=== PATIENT | male | born 1980 | race Caucasian/White ===

== ENCOUNTER 2017-01-21 15:27 | Inpatient (IN) ==
--- NOTE | 2017-01-21 16:32 | Emergency Department Note ---
Disposition Clinical Impression: Elevated troponin Disposition: Admitted As Inpatient Condition: Good Referrals: Manjinder Lora DO [Primary Care Provider] - Forms: ED Satisfaction Letter Chest Pain HPI - General Chief Complaint: ED Chest Pain Stated Complaint: Chest Pain Time Seen by Provider: 01/21/17 15:33 Source: patient Limitations: no limitations Vital Signs Reviewed: Yes Nursing Notes Reviewed: Yes - History of Present Illness HPI Narrative: Patient presents for complaint of chest pain chest tightness that started yesterday. Patient denies any aggravating alleviating factors. Patient states the pain is minimal his chest does not radiate. Patient denies bowel bladder dysfunction associated with this. Patient denies fevers or chills denies sick contacts. Patient does note the he is a significant family history of cardiac etiology. Patient denies shortness of breath, denies any recent travel. Severity scale (1-10): 3 - Related Data Home Medications Medication Instructions Recorded Confirmed Cetirizine HCl [Zyrtec] 10 mg PO DAILY 11/08/16 11/08/16 Previous Rx's Medication Instructions Recorded Albuterol Sulfate [Albuterol 1 puff IH QID PRN #1 puff 01/20/17 Inhaler] Allergies Allergy/AdvReac Type Severity Reaction Status Date / Time No Known Allergies Allergy Verified 01/20/17 13:44 All systems ED: reviewed and negative except as stated. Chest Pain PMH - Past Medical History Medical history: Reports: asthma - Social History Smoking Status: Never smoker Alcohol use: Reports: none Drug use: Reports: none Physical Exam - General Limitations: no limitations General appearance: alert - Head Head exam: atraumatic, normocephalic, normal inspection - Eye Eye exam: Present: normal appearance, PERRL, EOMI - ENT ENT exam: normal exam, normal oropharynx, mucous membranes moist - Neck Neck exam: Present: normal inspection, full ROM, trachea midline - Chest Chest inspection: Present: normal inspection, symmetric chest wall rise - Respiratory Respiratory exam: Present: normal lung sounds bilaterally - Cardiovascular Cardiovascular exam: Present: normal rhythm, tachycardia, normal heart sounds - Abdominal Exam Abdominal exam: Present: soft, Non-Tender. Absent: tenderness, distention, guarding, rebound, rigidity - Extremities Exam Extremities exam: Present: normal inspection, full ROM. Absent: tenderness, pedal edema - Back Exam Back exam: Present: normal inspection, full ROM. Absent: tenderness - Neurological Exam Neurological exam: Present: alert, oriented X3 - Psychiatric Psychiatric exam: Present: normal affect, normal mood - Skin Skin exam: Present: warm, dry, intact, normal color Course Vital Signs Temperature 98.1 F 01/21/17 15:27 Pulse Rate 109 01/21/17 15:27 Respiratory Rate 18 01/21/17 15:27 Blood Pressure 139/83 01/21/17 15:27 O2 Sat by Pulse Oximetry 96 01/21/17 15:27 Temperature 98.1 F 01/21/17 15:27 Pulse Rate 92 01/21/17 18:00 Respiratory Rate 16 01/21/17 18:00 Blood Pressure 136/85 01/21/17 18:00 O2 Sat by Pulse Oximetry 98 01/21/17 18:00 Oxygen Delivery Oxygen Delivery Room Air Chest Pain - Differential Diagnosis Likely: pneumothorax, unstable angina pectoris, atypical chest pain, st elevation myocardial infraction, chest pain - Lab Data Lab results reviewed: Yes I reviewed the patient's lab results. Result diagrams: 01/21/17 16:17 01/21/17 16:17 Lab Results 01/21/17 01/21/17 01/21/17 Range/Units 15:52 16:17 16:17 WBC 7.5 (4.3-11.1) K/mcL RBC 4.65 (4.19-5.50) M/mcL Hgb 14.0 (12.9-16.9) g/dL Hct 41.9 (37.5-50.1) % MCV 90.1 (83.0-100.0) fL MCH 30.1 (28.0-33.3) pg MCHC 33.4 (31.6-35.5) g/dL RDW 13.1 (11.5-14.5) % Plt Count 273 (140-400) K/mcL MPV 9.7 (9.4-12.4) fL Immature Gran % 0.1 (0-4) % Seg Neutrophils % 51.2 % Lymphocytes % 33.6 % Monocytes % 11.5 % Eosinophils % 3.1 % Basophils % 0.5 % Neutrophils # 3.8 (1.6-8.9) K/mcL Lymphocytes # 2.5 (0.6-4.6) K/mcL Monocytes # 0.9 (0.0-1.3) K/mcL Eosinophils # 0.2 (0.0-0.6) K/mcL Basophils # 0.0 (0.0-0.2) K/mcL D-Dimer (0-500) ng/mLFEU Sodium 141 (136-145) mEq/L Potassium 3.6 (3.5-4.5) mEq/L Chloride 106 (98-109) mEq/L Carbon Dioxide 23 (19-29) mEq/L BUN 12 (8-26) mg/dL Creatinine 0.83 (0.72-1.25) mg/dL Est GFR ( Amer) > 60 (> 60) Est GFR (Non-Af Amer) > 60 (> 60) BUN/Creatinine Ratio 14 (6-26) Glucose 112 H (70-99) mg/dL Calculated Osmolality 293 (280-300) Calcium 8.8 (8.6-10.8) mg/dL Total Bilirubin 0.4 (0.2-1.2) mg/dL AST 31 (5-34) Units/L ALT 49 (0-55) Units/L Alkaline Phosphatase 38 (38-126) Units/L Troponin I (0-0.03) ng/mL B-Natriuretic Peptide (0-100) pg/mL Serum Total Protein 7.5 (6.0-8.3) g/dL Albumin 3.3 L (3.5-5.0) g/dL Globulin 4.2 H (2.4-3.5) g/dL Albumin/Globulin Ratio 0.8 L (1.1-2.2) Urine Opiates Screen Negative (E[place]by=831) ng/mL Ur Barbiturates Screen Negative (Bdbyss=917) ng/mL Ur Phencyclidine Scrn Negative (Cutoff=25) ng/mL Ur Amphetamines Screen Negative (Kmmljz=1281) ng/mL U Benzodiazepines Scrn Negative (Uxliul=784) ng/mL Urine Cocaine Screen Negative (Cutoff= 300) ng/mL U Marijuana (THC) Screen Negative (Cutoff = 50) ng/mL 01/21/17 01/21/17 01/21/17 Range/Units 16:17 16:17 16:17 WBC (4.3-11.1) K/mcL RBC (4.19-5.50) M/mcL Hgb (12.9-16.9) g/dL Hct (37.5-50.1) % MCV (83.0-100.0) fL MCH (28.0-33.3) pg MCHC (31.6-35.5) g/dL RDW (11.5-14.5) % Plt Count (140-400) K/mcL MPV (9.4-12.4) fL Immature Gran % (0-4) % Seg Neutrophils % % Lymphocytes % % Monocytes % % Eosinophils % % Basophils % % Neutrophils # (1.6-8.9) K/mcL Lymphocytes # (0.6-4.6) K/mcL Monocytes # (0.0-1.3) K/mcL Eosinophils # (0.0-0.6) K/mcL Basophils # (0.0-0.2) K/mcL D-Dimer 632 H (0-500) ng/mLFEU Sodium (136-145) mEq/L Potassium (3.5-4.5) mEq/L Chloride (98-109) mEq/L Carbon Dioxide (19-29) mEq/L BUN (8-26) mg/dL Creatinine (0.72-1.25) mg/dL Est GFR ( Amer) (> 60) Est GFR (Non-Af Amer) (> 60) BUN/Creatinine Ratio (6-26) Glucose (70-99) mg/dL Calculated Osmolality (280-300) Calcium (8.6-10.8) mg/dL Total Bilirubin (0.2-1.2) mg/dL AST (5-34) Units/L ALT (0-55) Units/L Alkaline Phosphatase (38-126) Units/L Troponin I 1.14 H* (0-0.03) ng/mL B-Natriuretic Peptide 16 (0-100) pg/mL Serum Total Protein (6.0-8.3) g/dL Albumin (3.5-5.0) g/dL Globulin (2.4-3.5) g/dL Albumin/Globulin Ratio (1.1-2.2) Urine Opiates Screen (Nckwhx=029) ng/mL Ur Barbiturates Screen (Qctsut=612) ng/mL Ur Phencyclidine Scrn (Cutoff=25) ng/mL Ur Amphetamines Screen (Fwradw=9093) ng/mL U Benzodiazepines Scrn (Wrmctq=894) ng/mL Urine Cocaine Screen (Cutoff= 300) ng/mL U Marijuana (THC) Screen (Cutoff = 50) ng/mL - Radiology Data Radiology results reviewed: Yes I reviewed the patient's radiology results. Chest X-Ray 01/21/17 15:50 IMPRESSION: No acute cardiopulmonary abnormality detected. D/ / Serg Pruett MD / Serg Pruett MD Interpreting Provider: Serg Pruett MD Chest CTA 01/21/17 17:17 IMPRESSION: 1. No findings of pulmonary embolism. 2. Minimal bronchial wall thickening bilaterally and questionable patchy bronchial secretions in the lower lobes, potentially related to bronchitis. 3. Patchy mosaic attenuation in both lungs with basilar sparing, potentially related to small airways or small vessels disease. D/ / Po Dwyer MD / Po Dwyer MD Interpreting Provider: Po Dwyer MD - EKG Data EKG attestation: Yes I reviewed and interpreted this EKG. EKG shows normal: sinus rhythm Rate: tachycardia Rhythm: NSR Critical Care Time Total Critical Care Time: 30 Attestation: Critical care performed: Time is exclusive of separately billable procedures. Time includes: direct patient care, patient reassessment, coordination of patient care, interpretation of data (laboratory data, radiology data, and respiratory data), review of patient's medical records, medical consultation and documentation of patient care. Procedures included in critical care time: Procedures excluded from critical care time:
[2017-01-21 16:59] LABS: Basophils % 0.5 %; Eosinophils # 0.2 K/mcL (0.0-0.6); Eosinophils % 3.1 %; Hematocrit 41.9 % (37.5-50.1); Immature Granulocytes % 0.1 % (0-4); Lymphocytes # 2.5 K/mcL (0.6-4.6); Lymphocytes % 33.6 %; Mean Corpuscular HGB Conc 33.4 g/dL (31.6-35.5); Mean Corpuscular Hemoglobin 30.1 pg (28.0-33.3); Mean Corpuscular Volume 90.1 fL (83.0-100.0); Mean Platelet Volume 9.7 fL (9.4-12.4); Monocytes # 0.9 K/mcL (0.0-1.3); Monocytes % 11.5 %; Neutrophils # 3.8 K/mcL (1.6-8.9); Platelet Count 273 K/mcL (140-400); Red Blood Count 4.65 M/mcL (4.19-5.50); Red Cell Distribution Width 13.1 % (11.5-14.5); Segmented Neutrophils % 51.2 %
[2017-01-21 17:12] LABS: Alanine Aminotransferase 49 Units/L (0-55); Albumin 3.3 g/dL (3.5-5.0); Albumin/Globulin Ratio 0.8 (1.1-2.2); Alkaline Phosphatase 38 Units/L (38-126); Aspartate Amino Transferase 31 Units/L (5-34); BUN/Creatinine Ratio 14 (6-26); Bilirubin,Total 0.4 mg/dL (0.2-1.2); Blood Urea Nitrogen 12 mg/dL (8-26); Calcium 8.8 mg/dL (8.6-10.8); Carbon Dioxide 23 mEq/L (19-29); Chloride 106 mEq/L (98-109); Globulin 4.2 g/dL (2.4-3.5); Glucose 112 mg/dL (70-99); Osmolality,Calculated 293 (280-300); Potassium 3.6 mEq/L (3.5-4.5); Sodium 141 mEq/L (136-145); Total Protein 7.5 g/dL (6.0-8.3); eGFR For African Americans > 60 (> 60); eGFR For Non-African Americans > 60 (> 60)
[2017-01-21] MEDS ORDERED: Aspirin 81 MG TAB.CHEW PO ONE (17:26)
[2017-01-21] MEDS ORDERED: Nitroglycerin 0.4 MG TAB.SUBL SL PRN (17:30)
[2017-01-21 17:41] LABS: Amphetamine Screen,Urine Negative ng/mL (Cutoff=1000); Barbiturate Screen,Urine Negative ng/mL (Cutoff=200); Benzodiazepines Screen,Urine Negative ng/mL (Cutoff=200); Cannabinoid Screen,Urine Negative ng/mL (Cutoff = 50); Cocaine Screen,Urine Negative ng/mL (Cutoff= 300); Opiate Screen,Urine Negative ng/mL (Cutoff=300); Phencyclidine Screen,Urine Negative ng/mL (Cutoff=25)
[2017-01-21] MEDS ORDERED: Acetaminophen 325 MG TABLET PO PRN (19:56)
[2017-01-21] MEDS ORDERED: Naloxone 0.4 MG/ML INJ IVP PRN (19:56)
--- NOTE | 2017-01-21 20:02 | Internal Med History&Physical ---
Date of Encounter: 01/21/17 Time of Encounter: 20:02 Assessment and Plan (1) Chest pain Current visit: Yes Status: Acute atypical chest pain with elevated troponins R/O IA: trend troponins, echocardiogram, stress test possible pericarditis: chest pain is mild, but positional; EKG findings not suggestive of pericarditis; CRP ordered;[place]ie B virus antibodies lab ordered; ibuprofen 600 TID x 1-2 wks; colchicine 0.6 g BID x 3months Qualifiers: Chest pain type: unspecified Qualified Code(s): R07.9 - Chest pain, unspecified (2) Elevated troponin Current visit: Yes Status: Acute (3) DVT prophylaxis Current visit: Yes Status: Acute SQ lovenox Internal Medicine - H&P: HPI Chief complaint: CP Admitted From: Emergency Dept Plans for Post Hospital Care: Home History of present illness: Mr. Mcallister is a 36 year old male who presents to the ER with chest pain. He had gastroenteritis earlier this week with N/V/D. After being sick for 2 days, he had chest tightness. The chest pain has not gotten any better and there is a strong family history of CHF along with his father having multiple IA (unknown age of first IA), so he came to the ER. The chest pain is located substernally, is a tightness or pressure, does not radiate, and is made worse by taking a deep breath or lying flat. Associated symtpoms included thoracic back pain and neck pain that is an ache that started with the GI symptoms. He states that last year he had lab work done and he had HLD. He states that he gets this blood work done every 2-3 yrs. He does not take any medication for this. Past Med Surg Social Fam HX - Past Medical History Medical history: asthma (seasonal), hyperlipidemia, other (hx of rheumatic fever , [id number] carrier) Psychiatric history: no psych history - Past Surgical History Surgical History: no surgical history - Social History Smoking Status: Never smoker (heavy second hand smoke exposure growing up) Smokeless Tobacco Status: No Alcohol use: none Drug use: none - Family History Mother Age at : 51 Hx Family Cardiac Disorders: Yes (CHF) Hx Family Endocrine Disorder: Yes (DM) Father Age: 54 Hx Family Cardiac Disorders: Yes (multiple IA, HTN, HLD) Hx Family Cancer: Yes (skin) Internal Medicine - H&P: Meds Cetirizine HCl [Zyrtec] 10 mg PO DAILY PRN 11/08/16 [History] Albuterol Sulfate [Albuterol Inhaler] 1 puff IH QID PRN #1 puff 01/20/17 [Rx] Allergies No Known Allergies Allergy (Verified 01/20/17 13:44) All Systems PM: A 10-system review of systems was performed and is negative for pertinent findings except as documented above in the HPI. - Constitutional Constitutional: no chills, no fatigue, no fever(s), no malaise, no night sweats - EENT Eyes: no blurry vision, no change in vision, no discharge, no pain, no photophobia Ears: no ear discharge, no ear pain, no tinnitus Nose, mouth and throat: no dysphagia, no nasal discharge, no neck pain, no sore throat - Cardiovascular Cardiovascular ROS IM: chest pain, no diaphoresis, no dyspnea, no lightheadedness, no palpitations, no syncope - Respiratory Respiratory: no cough, no dyspnea, no wheezing, no excessive phlegm production - Gastrointestinal Gastrointestinal: diarrhea, nausea, vomiting, no abdominal pain, no hematemesis , no hematochezia, no melena - Genitourinary Genitourinary ROS male: no difficulty urinating, no dysuria, no urinary frequency, no urinary hesitancy, no urinary urgency - Musculoskeletal Musculoskeletal ROS IM: arthralgias, back pain, myalgias (upper back and neck), neck pain, no numbness, no tingling - Integumentary Integumentary IM: no rash, no unusual bruising - Neurological Neurological ROS: no confusion, no convulsions, no focal weakness, no numbness, no tingling, no tremor(s) - Hematologic/Lymphatic Hematologic/Lymphatic: no easy bruising - Constitutional Vitals: Temp Pulse Resp BP Pulse Ox 98.1 F 91 16 129/93 97 01/21/17 15:27 01/21/17 18:30 01/21/17 19:27 01/21/17 19:27 01/21/17 18:30 General appearance: Present: A&O X 3, pleasant, no acute distress, answers questions appropriately - Head Head exam: Present: atraumatic, normocephalic - Eye Eye exam: Present: PERRL, conjuntiva pink, sclera anicteric Pupils: Present: PERRL - Neck Neck exam general surgery: Present: supple, trachea midline. Absent: lymphadenopathy - Respiratory Respiratory exam: Present: CTAB. Absent: accessory muscle use, rales, rhonchi, wheezes - Cardiovascular Cardiovascular exam: Present: RRR, +S1, +S2. Absent: diastolic murmur, gallop, rubs, systolic murmur - GI/Abdominal GI/Abdominal exam: Present: normal bowel sounds, soft, no peritoneal signs. Absent: distended, tenderness - Extremities Exam Extremities exam: Present: warm, radial pulses palpable and symetrical. Absent : calf tenderness, cyanotic, pedal edema - Neurological Exam Neurological exam: Present: CN II-XII intact, oriented X3, no focal deficits. Absent: pronater drift, facial droop, speech deficit - Skin Skin exam: Present: dry, intact Internal Med - H&P Results - Labs CBC & Chem 7: 01/21/17 16:17 01/21/17 16:17
[2017-01-21] MEDS ORDERED: Loratadine 10 MG TABLET PO PRN (22:00)
[2017-01-21] MEDS ORDERED: *HR* Heparin 5,000 UNIT/ML VIAL SQ SCH (22:00)
[2017-01-21] MEDS: Colchicine 0.6 MG TABLET PO SCH (22:39)
[2017-01-21] MEDS: Ibuprofen 600 MG TABLET PO SCH (22:40)
[2017-01-22] MEDS ORDERED: *HR* Enoxaparin 100 MG/ML SYRINGE SQ SCH (06:00)
--- NOTE | 2017-01-22 09:31 | Cardiology Consult Note ---
Date of Encounter: 01/22/17 Time of Encounter: 09:00 Assessment and Plan (1) Elevated troponin Current Visit: Yes Status: Acute Troponin elevated at 1.14, 1.00, .38. Likely myopericarditis secondary to enterovirus. Describes pleuritic type chest pain. EKG shows no acute changes. Cardiac risk factors include HLD and family history. Check TTE. Agree with NSAID and Colchicine at this time. (2) Chest pain Current Visit: Yes Status: Acute Likely myopericarditis. Stress test cancelled. See plan above. Qualifiers: Chest pain type: unspecified Qualified Code(s): R07.9 - Chest pain, unspecified Discussion w patient/family: The assessment and plan as outlined above was discussed with the patient and/or family members who expressed understanding and agreement. All questions were answered. Thank you for involving us in the care of your patient. Please call with any questions. History of Present Illness Consult date: 01/22/17 Requesting physician: Cesar Moore Consult reason: Chest pain, elevated troponin Chief complaint: Chest pain History of present illness: Mr. Mcallister is a 36 year old male with a history of HLD, asthma, and rheumatic fever, and possible sleep apnea wearing c-pap who presented with chest tightness. He c/o nausea, vomiting, diarrhea all day Sunday and Sunday night. Sunday morning he developed mid-sternal chest burning. He went to urgent care and ask for an inhaler for his asthma. He decided to come to the ER last night d /t continued chest discomfort and his family history of heart disease. His grandmother has CHF and VA. He was told his mother had a history of VA. She at the age of 51 d/t unknown causes. His discomfort is described as a burning that increases with deep breaths and lying flat. He voices relief of his pain this morning. He was started on ibuprofen and colchicine for possible pericarditis. Past Med Surg Social Fam HX - Past Medical History Medical history: asthma, hyperlipidemia, other Psychiatric history: no psych history - Past Surgical History Surgical History: vasectomy - Social History Smoking Status: Never smoker Smokeless Tobacco Status: No Alcohol use: none Drug use: none - Family History Mother Living Status: Age at : 51 Cause of : Unknown Hx Family Cardiac Disorders: Yes (CHF, Renal failure) Hx Family Endocrine Disorder: Yes (DM) Father Age: 54 Living Status: Still Living Hx Family Cardiac Disorders: Yes (multiple VA, HTN, HLD) Hx Family Cancer: Yes (Melanoma) Medications and Allergies Cetirizine HCl [Zyrtec] 10 mg PO DAILY PRN 11/08/16 [History] Albuterol Sulfate [Albuterol Inhaler] 1 puff IH QID PRN #1 puff 01/20/17 [Rx] Allergies No Known Allergies Allergy (Verified 01/20/17 13:44) All Systems Review: A 10-system review of systems was performed and is negative for pertinent findings except as documented above in the HPI. Physical Examination Vital Signs, Last 4 Hours Temp Pulse Resp BP Pulse Ox 01/22/17 06:00 97.9 F 85 16 115/69 97 General: Conversant, No Apparent Distress HEENT: Atraumatic, Normocephaly, Mucus Membranes Moist Neck: No JVD, Normal carotid pulses Cardiac: Reg Rate and Rhythm, Normal S1 and S2, No Murmur Lungs: Normal Breath Sounds, No Wheeze, Rales, Rhonchi Neuro: Alert and responsive, No focal deficits noted Abdomen: Soft, Non-Tender Skin: No rashes noted on visualized skin Musculoskeletal: No Chest Wall Tenderness Extremities: No Clubbing, No Cyanosis, No Edema, Normal Pulses Results 01/21/17 16:17 01/21/17 16:17 Lab Results 01/22/17 05:48 Troponin I 0.38 H* Chest X-Ray 01/21/17 15:50 IMPRESSION: No acute cardiopulmonary abnormality detected. D/ / Serg Pruett MD / Serg Pruett MD Interpreting Provider: Serg Pruett MD Chest CTA 01/21/17 17:17 IMPRESSION: 1. No findings of pulmonary embolism. 2. Minimal bronchial wall thickening bilaterally and questionable patchy bronchial secretions in the lower lobes, potentially related to bronchitis. 3. Patchy mosaic attenuation in both lungs with basilar sparing, potentially related to small airways or small vessels disease. D/ / Po Dwyer MD / Po Dwyer MD Interpreting Provider: Po Dwyer MD - Imaging and Cardiology Echo: pending Consult Discharge Plan - Plan Referrals: Manjinder Lora, DO [Primary Care Provider] -
--- NOTE | 2017-01-22 09:35 | Internal Med Progress Note ---
Date of Encounter: 01/22/17 Time of Encounter: 09:34 - Subjective Interval history: Feels well; improving retrosternal chest pain; chest pain, worse with leaning forward/lying down and taking deep breaths; no nausea, vomiting, dizziness; - Constitutional Vitals: Temp Pulse Resp BP Pulse Ox 97.9 F 85 16 115/69 97 01/22/17 06:00 01/22/17 06:00 01/22/17 06:00 01/22/17 06:00 01/22/17 06:00 General appearance: Present: A&O X 3, answers questions appropriately - Respiratory Respiratory exam: Present: CTAB. Absent: accessory muscle use, rales, rhonchi, wheezes - Cardiovascular Cardiovascular exam: Present: RRR, +S1, +S2, tachycardia. Absent: diastolic murmur, gallop, rubs, systolic murmur - GI/Abdominal GI/Abdominal exam: Present: normal bowel sounds, soft, no peritoneal signs. Absent: distended, tenderness - Extremities Exam Extremities exam: Present: warm, radial pulses palpable and symetrical. Absent : calf tenderness, cyanotic, pedal edema - Neurological Exam Neurological exam: Present: CN II-XII intact, oriented X3, no focal deficits. Absent: pronater drift, facial droop, speech deficit Internal Medicine: Result - Labs CBC & Chem 7: 01/21/17 16:17 01/21/17 16:17 Labs: Cardiac Enzymes 01/22/17 Range/Units 05:48 Troponin I 0.38 H* (0-0.03) ng/mL - ABG Interpretation ABG results: PT/INR, D-dimer D-Dimer 632 ng/mLFEU (0-500) H 01/21/17 16:17 Consult Discharge Plan - Plan Referrals: Manjinder Lora DO [Primary Care Provider] -
--- NOTE | 2017-01-22 12:22 | ECHO - Doppler Report ---
Echocardiogram Name: Ayad Mcallister Date of Study: 01/22/2017 Date: 1980 Ht: 71.0 in Medical Record#: [id number] Age: 36 Wt: 202.0 lb Gender: Male BSA: 2.12 Order #: [id number] Location: [facility] Room #: [id number] Reading Physician: Caitlin Kearney DO [employer] Lender: Dixon Roth RN Ordering Physician: Lilia Leung DO Primary Physician: Manjinder Lora DO Indications: Chest pain Impressions: LVEF 50-55%. Normal left ventricular size and systolic function. Pseudonormal LV diastolic function. Normal right ventricular size and function. Mild mitral regurgitation. Aortic leaflet morphology is not well visualized. Consider repeat Limited study for re-evaluation of the aortic valve. No associated regurgitation or stenosis. No pulmonary hypertension. Left Ventricular Wall Motion: Rest Echo Findings All wall segments showed normal motion. Findings: Study Quality * Technically adequate exam. ECG Findings * Normal sinus rhythm. Left Ventricle * Pseudonormal LV diastolic dysfunction. * LVEF 50%. * Normal LV chamber size, wall thickness and function. Left Atrium * Normal left atrial size. Mitral Valve * Normal mitral valve structure. * Mild mitral regurgitation. * No mitral regurgitation. Aortic Valve * No aortic regurgitation. * Not well visualized. Consider a bicuspid valve. * No aortic stenosis. Tricuspid Valve * Tricuspid valve not well visualized. * Trace tricuspid regurgitation. * Estimated RA pressure is 3 mmHg. * Estimated RVSP is 24 mmHg. * No pulmonary hypertension. Pulmonic Valve * Pulmonic valve is not well visualized. * No pulmonic stenosis. * No pulmonic regurgitation. Pulmonary Artery * Pulmonary artery not well visualized. Right Ventricle * Normal right ventricular structure and function. Right Atrium * Normal right atrial size. Interatrial Septum * No evidence of PFO by color Doppler. IVC * Normal IVC dimensions and inspiratory collapse. Pericardium * There is no pericardial effusion present. Aorta * Normally sized aortic root. History Rheumatic Fever Family History of CAD Congential Heart Disease Measurements: BP: 115/ 69 2D Normal Values IVSd: 1.10 cm 0.6 - 1.0 cm LVIDd: 5.00 cm 3.7 - 5.6 cm LVPWd: 1.10 cm 0.6 - 1.1 cm LVIDs: 3.20 cm 1.5 - 3.6 cm LA: 3.60 cm 2.0 - 4.0cm %FS: 36.00 cm >25 % LVOT Diam: 2.00 cm LA volume: 54 Mitral Valve Peak E:.89 m/sec Peak A:.80 m/sec E/A Ratio:1.1 Peak E' Lat Richard:11.9 cm/s Peak E' Med Richard:9.46 cm/s E/E' Lat Ratio:7.5 E/E' Med Ratio:9.4 Tricuspid Valve TV Regurg Peak Grad: 21.00mmHg TV Regurg Peak Richard: 2.29m/sec Updated by Caitlin Kearney on 01/22/2017 12:15:54 PM electronically signed on 01/22/2017 12:18:19 PM with status of Final Wall Motion [place]: 1=Normal, 2=Hypokinesis, 3=Akinesis, 4=Dyskinesis, 5=Aneurysmal, 6=Hyperkinetic, X=Not Visualized (Blank)=Missing
[2017-01-22 12:25] VITALS: BP 122/81
[2017-01-22] MEDS: Ibuprofen 600 MG TABLET PO SCH ×2 (15:33→16:10)
--- NOTE | 2017-01-22 15:39 | Event Note ---
Date of Encounter: 01/22/17 Time of Encounter: 15:33 - Cardiology Event Note TTE showed EF 55%. No wall motion abnormality. Mild MR. Aortic valve leaflet morphology not well seen. No or AR seen. Can consider repeat study in out- patient setting. Symptoms consistent with acute pericarditis. Recent viral illness. Agree with Ibuprofen and colchicine. No further cardiac testing. Out patient f/u in 1-2 weeks.
[2017-01-22] MEDS: Colchicine 0.6 MG TABLET PO SCH (16:10)
[2017-01-22] MEDS ORDERED: FLU VACC QS2016-17 36MOS UP/PF 0.5 ML SYRINGE IM ONE (16:17)
--- NOTE | 2017-01-22 16:19 | Discharge Summary ---
Date of Encounter: 01/22/17 Time of Encounter: 16:15 - Discharge Diagnosis (1) Acute myopericarditis Priority: Primary Status: Acute (2) Chest pain Priority: Primary Status: Acute Qualifiers: Chest pain type: precordial pain Qualified Code(s): R07.2 - Precordial pain - Discharge Medications Prescriptions: Colchicine [Colcrys] 0.6 mg PO BID #20 tablet Ibuprofen [Motrin] 600 mg PO TID PRN #20 tablet PRN Reason: Chest Pain Home Medications: Cetirizine HCl [Zyrtec] 10 mg PO DAILY PRN 11/08/16 [History] Albuterol Sulfate [Albuterol Inhaler] 1 puff IH QID PRN #1 puff 01/20/17 [Rx] Colchicine [Colcrys] 0.6 mg PO BID #20 tablet 01/22/17 [Rx] Ibuprofen [Motrin] 600 mg PO TID PRN #20 tablet 01/22/17 [Rx] Allergies/Adverse Reactions: Allergies No Known Allergies Allergy (Verified 01/20/17 13:44) Procedures/tests Complete & Pending: Procedures Performed prior 72 hours Category Date Time Status ECG 12 lead ECG [ECG] Routine Y 01/21/17 15:36 Completed Date of admission: 01/21/17 22:02 Primary care physician: Manjinder Lora DO Consults: 01/21/17 22:22 Consult to Cardiology [CONS] Routine Comment: Consulting Provider: Cardiology Naomie Reason for Consult: atypical chest pain, elevated troponin. Call Completed: No Discharging clinician: Nohemi Williamson Anticipated date of discharge: 01/22/17 - Patient Status Disposition: Home, Self-Care Condition: Good Functional capacity at discharge: independent ambulation Overall status at discharge: patient is progressing back to baseline - Discharge Instructions Instructions: Ibuprofen (By mouth), Colchicine (By mouth), Chest Pain (DC), Gastroenteritis (DC) Follow Up With: Manjinder Lora DO [Primary Care Provider] - (please make appoinment in 5-7 days ) Delvis Johnson DO [Partnered Physician] - 02/08/17 12:30 pm Forms: Work/School Release Additional Instructions: F/up with [facility] in 2 weeks - Diet and Activity Activity: increase activity as tolerated (no strenuous activity for the next 2 weeks) Diet: advance to your usual diet, regular diet Hospital course: Mr. Mcallister is a 36 year old male with no significant medical history, admitted with chest pain, started after possible viral gastroenteritis. Initial labs were noted to be normal and EKG and chest XRay showed no acute findings. His presentation was c.w pericarditis. He was started on Ibuprofen and Colchicine with good relief in chest pain. Echocardiogram was done which showed preserved EF, mild MR, AV could not be well-visualized. CTA chest showed no pE or focal infiltrates. Cardiology was consulted and agreed with this management, recommend no further intervention and outpatient f/up is advised. He is advised to avoid strenuous activity for the next 2 weeks. he is medically stable for discharge. - Time Spent with Patient Total time spent providing and/or coordinating discharge services: Greater than 30 minutes (45 min) - Constitutional Vitals: Temp Pulse Resp BP Pulse Ox 97.9 F 86 15 122/81 97 01/22/17 06:00 01/22/17 12:00 01/22/17 12:00 01/22/17 12:00 01/22/17 06:00 General appearance: Present: A&O X 3, answers questions appropriately - Respiratory Respiratory exam: Present: CTAB. Absent: accessory muscle use, rales, rhonchi, wheezes - Cardiovascular Cardiovascular exam: Present: RRR, +S1, +S2. Absent: diastolic murmur, gallop, rubs, systolic murmur
--- NOTE | 2017-01-22 16:57 | Electrocardiograph Report ---
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
[2017-01-29 17:33] LABS: Coxsackie B Type 1 Antibody 1:20 (<1:10); Coxsackie B Type 2 Antibody 1:10 (<1:10); Coxsackie B Type 3 Antibody <1:10 (<1:10); Coxsackie B Type 4 Antibody <1:10 (<1:10); Coxsackie B Type 5 Antibody 1:40 (<1:10)
[2017-01-30 07:12] LABS: Coxsackie B Type 6 Antibody <1:10 (<1:10)
== END 2017-01-22 17:00 | disposition home or self-care (01) | DRG 207 ==
LOC: 2NENU 15:27 → EMEROO 15:27 → 2NENU 20:43
PROVIDERS: ADMIT Internal Medicine; ATTEND Internal Medicine

== ENCOUNTER 2017-05-29 13:08 | Observation (INO) ==
[2017-05-29 13:37] LABS: Basophils # 0.1 K/mcL (0.0-0.2); Basophils % 1.5 %; Eosinophils # 0.7 K/mcL (0.0-0.6); Eosinophils % 7.6 %; Hematocrit 46.4 % (37.5-50.1); Hemoglobin 15.6 g/dL (12.9-16.9); Immature Granulocytes % 0.3 % (0-4); Lymphocytes # 3.2 K/mcL (0.6-4.6); Lymphocytes % 34.3 %; Mean Corpuscular HGB Conc 33.6 g/dL (31.6-35.5); Mean Corpuscular Hemoglobin 29.9 pg (28.0-33.3); Mean Corpuscular Volume 88.9 fL (83.0-100.0); Mean Platelet Volume 9.4 fL (9.4-12.4); Monocytes # 0.8 K/mcL (0.0-1.3); Monocytes % 8.6 %; Neutrophils # 4.5 K/mcL (1.6-8.9); Platelet Count 342 K/mcL (140-400); Red Blood Count 5.22 M/mcL (4.19-5.50); Segmented Neutrophils % 47.7 %
[2017-05-29 13:44] LABS: BUN/Creatinine Ratio 12 (6-26); Blood Urea Nitrogen 11 mg/dL (8-26); Calcium 10.1 mg/dL (8.6-10.8); Carbon Dioxide 26 mEq/L (19-29); Chloride 104 mEq/L (98-109); Glucose 87 mg/dL (70-99); Osmolality,Calculated 285 (280-300); Potassium 3.9 mEq/L (3.5-4.5); Sodium 138 mEq/L (136-145); eGFR For African Americans > 60 (> 60); eGFR For Non-African Americans > 60 (> 60)
[2017-05-29 13:54] LABS: INR 1.1; Prothrombin Time 12.3 Seconds (9.4-12.1)
[2017-05-29 13:57] LABS: Activated Partial Thrombo Time 28.4 Seconds (26.0-36.0)
--- NOTE | 2017-05-29 14:27 | Emergency Department Note ---
Disposition Clinical Impression: History of pericarditis Dyspnea Qualifiers: Dyspnea type: unspecified Qualified Code(s): R06.00 - Dyspnea, unspecified Disposition: Admitted As Inpatient Condition: Good Referrals: Manjinder Lora DO [Primary Care Provider] - Forms: ED Satisfaction Letter General Adult HPI - General Chief complaint: ED Chest Pain Stated complaint: CP CHLOE From [facility] Time Seen by Provider: 05/29/17 14:11 Source: patient Limitations: no limitations Nursing Notes Reviewed: Yes Vital Signs Reviewed: Yes - History of Present Illness HPI Narrative: 36-year-old male who was diagnosed with myopericarditis in January. At that time he was having chest tightness. He was put on culture seen and ibuprofen and was discharged home. He states that since late April he has had progressive worsening of dyspnea and upper chest tightness. He does report a history of asthma and that his dyspnea worsened after moving to a new house in which the previous owners had dogs. He states he is allergic to dogs. Yesterday his dyspnea worsened and he did have some improvement after taking colchicine and ibuprofen. He has had a mild cough which is been nonproductive. No fever. No nausea or vomiting or abdominal pain. Pain Scale: 2 Consistency: constant Improves with: nothing Worsens with: movement Associated symptoms: Reports: denies other symptoms Treatments Prior to Arrival: none - Related Data Home Medications Medication Instructions Recorded Confirmed Cetirizine HCl [Zyrtec] 10 mg PO DAILY PRN 11/08/16 05/29/17 Previous Rx's Medication Instructions Recorded Albuterol Sulfate [Albuterol 1 puff IH QID PRN #1 puff 01/20/17 Inhaler] Colchicine [Colcrys] 0.6 mg PO BID #20 tablet 01/22/17 Ibuprofen [Motrin] 600 mg PO TID PRN #20 tablet 01/22/17 Allergies Allergy/AdvReac Type Severity Reaction Status Date / Time No Known Allergies Allergy Verified 05/29/17 11:59 All systems ED: reviewed and negative except as stated. Constitutional: Denies: fever Eyes: Denies: vision change ENT ED: Denies: throat pain Cardiovascular: Denies: chest pain Respiratory: Reports: cough, dyspnea. Denies: wheezes, hemoptysis Gastrointestinal: Denies: abdominal pain, nausea, vomiting Genitourinary: Denies: dysuria Musculoskeletal: Denies: back pain Integumentary: Denies: rash Neurological: Denies: headache Endocrine: Denies: fatigue Past Medical History - Past Medical History Medical history: Reports: asthma, other Surgical history: Reports: vasectomy Psychiatric history: Reports: no psych history - Social History Smoking Status: Never smoker Smokeless Tobacco Status: No Alcohol use: Reports: none Drug use: Reports: none Physical Exam - General Limitations: no limitations General appearance: alert, in no apparent distress - Head Head exam: atraumatic - Eye Eye exam: Present: normal appearance, PERRL, EOMI - ENT ENT exam: normal exam, normal oropharynx - Neck Neck exam: Present: normal inspection - Chest Chest inspection: Present: normal inspection - Respiratory Respiratory exam: Present: normal lung sounds bilaterally. Absent: respiratory distress, wheezes - Cardiovascular Cardiovascular exam: Present: regular rate, normal rhythm - Abdominal Exam Abdominal exam: Present: soft, Non-Tender - Extremities Exam Extremities exam: Present: normal inspection - Back Exam Back exam: Present: normal inspection - Neurological Exam Neurological exam: Present: alert, oriented X3 - Psychiatric Psychiatric exam: Present: normal affect, normal mood - Skin Skin exam: Present: warm, dry Course Course Narrative: Bedside ultrasound demonstrated a possible mild pericardial effusion but apparent normal gross ejection fraction. I called cardiology (Danyelle) who recommended that he be admitted for formal echo and observation. PERC negative. normal vitals. CXR negative. Admitted to hospitalist for echocardiogram and observation. Voiced concern to hospitalist about need for echo. Vital Signs Temperature 97.8 F 05/29/17 13:13 Pulse Rate 86 05/29/17 13:13 Respiratory Rate 18 05/29/17 13:13 Blood Pressure 123/80 05/29/17 13:13 O2 Sat by Pulse Oximetry 98 05/29/17 13:13 Temperature 97.8 F 05/29/17 13:13 Pulse Rate 86 05/29/17 13:13 Respiratory Rate 18 05/29/17 13:13 Blood Pressure 123/80 05/29/17 13:13 O2 Sat by Pulse Oximetry 98 05/29/17 13:13 Oxygen Delivery Oxygen Delivery Room Air Medical Decision Making - Medical Records Medical records reviewed: Yes I reviewed the patient's medical records. - Lab Data Lab results reviewed: Yes I reviewed the patient's lab results. Result diagrams: 05/29/17 13:26 05/29/17 13:26 Lab Results 05/29/17 05/29/17 05/29/17 Range/Units 12:25 13:26 13:26 WBC 9.5 (4.3-11.1) K/mcL RBC 5.22 (4.19-5.50) M/mcL Hgb 15.6 (12.9-16.9) g/dL Hct 46.4 (37.5-50.1) % MCV 88.9 (83.0-100.0) fL MCH 29.9 (28.0-33.3) pg MCHC 33.6 (31.6-35.5) g/dL RDW 13.0 (11.5-14.5) % Plt Count 342 (140-400) K/mcL MPV 9.4 (9.4-12.4) fL Immature Gran % 0.3 (0-4) % Seg Neutrophils % 47.7 % Lymphocytes % 34.3 % Monocytes % 8.6 % Eosinophils % 7.6 % Basophils % 1.5 % Neutrophils # 4.5 (1.6-8.9) K/mcL Lymphocytes # 3.2 (0.6-4.6) K/mcL Monocytes # 0.8 (0.0-1.3) K/mcL Eosinophils # 0.7 H (0.0-0.6) K/mcL Basophils # 0.1 (0.0-0.2) K/mcL PT 12.3 H (9.4-12.1) Seconds INR 1.1 APTT 28.4 (26.0-36.0) Seconds Sodium (136-145) mEq/L Potassium (3.5-4.5) mEq/L Chloride (98-109) mEq/L Carbon Dioxide (19-29) mEq/L BUN (8-26) mg/dL Creatinine (0.72-1.25) mg/dL Est GFR ( Amer) (> 60) Est GFR (Non-Af Amer) (> 60) BUN/Creatinine Ratio (6-26) Glucose (70-99) mg/dL Calculated Osmolality (280-300) Calcium (8.6-10.8) mg/dL Troponin I 0.00 (0-0.03) ng/mL 05/29/17 Range/Units 13:26 WBC (4.3-11.1) K/mcL RBC (4.19-5.50) M/mcL Hgb (12.9-16.9) g/dL Hct (37.5-50.1) % MCV (83.0-100.0) fL MCH (28.0-33.3) pg MCHC (31.6-35.5) g/dL RDW (11.5-14.5) % Plt Count (140-400) K/mcL MPV (9.4-12.4) fL Immature Gran % (0-4) % Seg Neutrophils % % Lymphocytes % % Monocytes % % Eosinophils % % Basophils % % Neutrophils # (1.6-8.9) K/mcL Lymphocytes # (0.6-4.6) K/mcL Monocytes # (0.0-1.3) K/mcL Eosinophils # (0.0-0.6) K/mcL Basophils # (0.0-0.2) K/mcL PT (9.4-12.1) Seconds INR APTT (26.0-36.0) Seconds Sodium 138 (136-145) mEq/L Potassium 3.9 (3.5-4.5) mEq/L Chloride 104 (98-109) mEq/L Carbon Dioxide 26 (19-29) mEq/L BUN 11 (8-26) mg/dL Creatinine 0.94 (0.72-1.25) mg/dL Est GFR ( Amer) > 60 (> 60) Est GFR (Non-Af Amer) > 60 (> 60) BUN/Creatinine Ratio 12 (6-26) Glucose 87 (70-99) mg/dL Calculated Osmolality 285 (280-300) Calcium 10.1 (8.6-10.8) mg/dL Troponin I (0-0.03) ng/mL - Radiology Data Radiology results reviewed: Yes I reviewed the patient's radiology results. - EKG Data EKG #1 EKG attestation: Yes I reviewed and interpreted this EKG. EKG shows normal: sinus rhythm Rate: normal Rhythm: NSR [place]/QRS: normal Interpretation: no acute changes, normal EKG Attestation Statement - Attestation Attestation: I examined this patient and my medical decision-making was reviewed with the LINE COOK/PA/Advanced Practice Nurse/Resident Physician. I agree with the documented findings, disposition and treatment plan as described except to the extent set forth below. In summary patient with history of pericarditis. Presents today with concern for dyspnea on exertion. Concern for need for repeat echocardiogram. Patient will be admitted for observation, repeat echocardiogram will be performed. EKG shows no findings of pericarditis at this time. Cardiac biomarkers are normal. Patient is taking colchicine as well as Motrin. We will admit for cardiac consultation and further evaluation by cardiology services.
[2017-05-29] MEDS ORDERED: Naloxone 0.4 MG/ML INJ IVP PRN (18:15)
[2017-05-29] MEDS ORDERED: Ondansetron 4 MG/2 ML VIAL IVP PRN (18:15)
--- NOTE | 2017-05-29 18:19 | Internal Med History&Physical ---
Date of Encounter: 05/29/17 Time of Encounter: 18:19 Assessment and Plan (1) Dyspnea Current visit: Yes Status: Acute To rule out pericarditis and pericardial effusion. Bedside ultrasound done in the emergency room showed mild to moderate pericardial effusion. Case discussed by emergency room physician with cardiology, who recommended complete echocardiogram. Continue telemetry monitoring and cycle troponins. Check d- dimer. Continue aspirin, NSAIDs along with when necessary albuterol and supplemental oxygen and supportive care. Follow-up 2-D echocardiogram. Cardiology consult. Qualifiers: Dyspnea type: shortness of breath Qualified Code(s): R06.02 - Shortness of breath (2) Asthma Current visit: Yes Status: Chronic Qualifiers: Asthma severity: mild intermittent Asthma complication type: uncomplicated Qualified Code(s): J45.20 - Mild intermittent asthma, uncomplicated (3) Gout Current visit: Yes Status: Chronic Qualifiers: Gout site: unspecified site Gout etiology: unspecified cause Chronicity: chronic Presence of tophus: without tophus Qualified Code(s): M1A.9XX0 - Chronic gout, unspecified, without tophus (tophi) (4) History of pericarditis Current visit: Yes Status: Inactive Internal Medicine - H&P: HPI Chief complaint: Shortness of breath Admitted From: Emergency Dept Plans for Post Hospital Care: Home History of present illness: Mr. Mcallister is a 36 year old male with history of asthma and gout and recent pericarditis, who presents with complaints of dyspnea and chest discomfort for one week. Patient reports history of upper respiratory tract infection prior to this complaints that has resolved. He started feeling short of breath with intermittent chest discomfort and tightness, that was aggravated with exertion. These episodes have been getting worse for the last 1-2 days, also associated with nonproductive cough. His chest discomfort is relieved with colchicine and NSAIDs which she took assuming this to be another bout of pericarditis. He has no fever, chills, dizziness, syncope. He continues to have symptoms despite using when necessary albuterol and symptomatic therapy at home and so he presented to the emergency room. Past Med Surg Social Fam HX - Past Medical History Source: patient Medical history: asthma, other Psychiatric history: no psych history - Past Surgical History Surgical History: vasectomy, other (Right cervical lymph node resection) - Social History Smoking Status: Never smoker Smokeless Tobacco Status: No Alcohol use: none, occasionally Drug use: none Occupational status: employed Current living situation: Home - Independent Activity Level: Independent ambulation Recent Out of Country Travel Within the Last 8 Weeks: No - Family History Mother Living Status: Hx Family Cardiac Disorders: Yes (CHF, Renal failure) Hx Family Endocrine Disorder: Yes (DM) Father Living Status: Still Living Hx Family Cardiac Disorders: Yes (multiple TN, HTN, HLD) Hx Family Cancer: Yes (Melanoma) Internal Medicine - H&P: Meds Cetirizine HCl [Zyrtec] 10 mg PO DAILY 11/08/16 [History] Colchicine [Colcrys] 0.6 mg PO BID #20 tablet 01/22/17 [Rx] Albuterol Sulfate [Albuterol Inhaler] 2 puff IH QID PRN 05/29/17 [History] Ibuprofen [Motrin] 400 mg PO Q6HR PRN 05/29/17 [History] Allergies No Known Allergies Allergy (Verified 05/29/17 11:59) All Systems PM: A 10-system review of systems was performed and is negative for pertinent findings except as documented above in the HPI. - Constitutional Constitutional: no chills, no fever(s), no night sweats - EENT Eyes: no change in vision, no discharge, no pain, no photophobia Ears: no ear discharge, no ear pain, no tinnitus Nose, mouth and throat: no dysphagia, no nasal discharge, no neck pain, no sore throat - Cardiovascular Cardiovascular ROS IM: chest pain - Respiratory Respiratory: cough, dyspnea, dyspnea on exertion - Gastrointestinal Gastrointestinal: no abdominal pain, no diarrhea, no hematemesis, no hematochezia, no melena, no nausea, no vomiting - Musculoskeletal Musculoskeletal ROS IM: no numbness, no tingling - Integumentary Integumentary IM: no rash, no unusual bruising - Neurological Neurological ROS: no confusion, no convulsions, no focal weakness, no numbness, no tingling, no tremor(s) - Hematologic/Lymphatic Hematologic/Lymphatic: no easy bruising - Constitutional Vitals: Temp Pulse Resp BP Pulse Ox 98.1 F 89 16 127/88 94 05/29/17 17:44 05/29/17 17:44 05/29/17 17:44 05/29/17 17:44 05/29/17 17:44 General appearance: Present: A&O X 3, answers questions appropriately - Respiratory Respiratory exam: Present: CTAB. Absent: accessory muscle use, rales, rhonchi, wheezes - Cardiovascular Cardiovascular exam: Present: RRR, +S1, +S2. Absent: diastolic murmur, gallop, rubs, systolic murmur - GI/Abdominal GI/Abdominal exam: Present: normal bowel sounds, soft, no peritoneal signs. Absent: distended, tenderness - Extremities Exam Extremities exam: Present: full ROM, warm, radial pulses palpable and symetrical. Absent: calf tenderness, cyanotic, pedal edema - Neurological Exam Neurological exam: Present: CN II-XII intact, oriented X3, no focal deficits. Absent: pronater drift, facial droop, speech deficit - Skin Skin exam: Present: dry, intact Internal Med - H&P Results - Labs CBC & Chem 7: 05/30/17 01:19 05/30/17 01:19 - EKG Data -: EKG Interpreted by Myself EKG shows normal: sinus rhythm
--- NOTE | 2017-05-29 19:54 | Emergency Department Note ---
Disposition Clinical Impression: History of pericarditis Dyspnea Qualifiers: Dyspnea type: unspecified Qualified Code(s): R06.00 - Dyspnea, unspecified Disposition: Admitted As Inpatient Condition: Good General Adult HPI - General Chief complaint: ED Chest Pain Stated complaint: CP CHLOE From [facility] Time Seen by Provider: 05/29/17 14:11 Source: patient Limitations: no limitations - History of Present Illness Pain Scale: 0 Improves with: nothing Worsens with: movement Associated symptoms: Reports: denies other symptoms Treatments Prior to Arrival: none - Related Data Home Medications Medication Instructions Recorded Confirmed Cetirizine HCl [Zyrtec] 10 mg PO DAILY 11/08/16 05/29/17 Albuterol Sulfate [Albuterol 2 puff IH QID PRN 05/29/17 05/29/17 Inhaler] Ibuprofen [Motrin] 400 mg PO Q6HR PRN 05/29/17 05/29/17 Previous Rx's Medication Instructions Recorded Colchicine [Colcrys] 0.6 mg PO BID #20 tablet 01/22/17 Allergies Allergy/AdvReac Type Severity Reaction Status Date / Time No Known Allergies Allergy Verified 05/29/17 11:59 Constitutional: Denies: fever Eyes: Denies: vision change ENT ED: Denies: throat pain Cardiovascular: Denies: chest pain Respiratory: Reports: cough, dyspnea. Denies: wheezes, hemoptysis Gastrointestinal: Denies: abdominal pain, nausea, vomiting Genitourinary: Denies: dysuria Musculoskeletal: Denies: back pain Integumentary: Denies: rash Neurological: Denies: headache Endocrine: Denies: fatigue Past Medical History - Past Medical History Medical history: Reports: asthma, other Surgical history: Reports: vasectomy Psychiatric history: Reports: no psych history - Social History Smoking Status: Never smoker Smokeless Tobacco Status: No Alcohol use: Reports: none Drug use: Reports: none Physical Exam - General Limitations: no limitations General appearance: alert, in no apparent distress Course Vital Signs Temperature 97.8 F 05/29/17 13:13 Pulse Rate 86 05/29/17 13:13 Respiratory Rate 18 05/29/17 13:13 Blood Pressure 123/80 05/29/17 13:13 O2 Sat by Pulse Oximetry 98 05/29/17 13:13 Temperature 98.4 F 05/29/17 19:18 Pulse Rate 94 05/29/17 19:18 Respiratory Rate 18 05/29/17 19:18 Blood Pressure 116/80 05/29/17 19:18 O2 Sat by Pulse Oximetry 96 05/29/17 19:18 Oxygen Delivery Oxygen Delivery Room Air Medical Decision Making - Lab Data Result diagrams: 05/29/17 13:26 05/29/17 13:26 Lab Results 05/29/17 05/29/17 05/29/17 Range/Units 12:25 13:26 13:26 WBC 9.5 (4.3-11.1) K/mcL RBC 5.22 (4.19-5.50) M/mcL Hgb 15.6 (12.9-16.9) g/dL Hct 46.4 (37.5-50.1) % MCV 88.9 (83.0-100.0) fL MCH 29.9 (28.0-33.3) pg MCHC 33.6 (31.6-35.5) g/dL RDW 13.0 (11.5-14.5) % Plt Count 342 (140-400) K/mcL MPV 9.4 (9.4-12.4) fL Immature Gran % 0.3 (0-4) % Seg Neutrophils % 47.7 % Lymphocytes % 34.3 % Monocytes % 8.6 % Eosinophils % 7.6 % Basophils % 1.5 % Neutrophils # 4.5 (1.6-8.9) K/mcL Lymphocytes # 3.2 (0.6-4.6) K/mcL Monocytes # 0.8 (0.0-1.3) K/mcL Eosinophils # 0.7 H (0.0-0.6) K/mcL Basophils # 0.1 (0.0-0.2) K/mcL PT 12.3 H (9.4-12.1) Seconds INR 1.1 APTT 28.4 (26.0-36.0) Seconds Sodium (136-145) mEq/L Potassium (3.5-4.5) mEq/L Chloride (98-109) mEq/L Carbon Dioxide (19-29) mEq/L BUN (8-26) mg/dL Creatinine (0.72-1.25) mg/dL Est GFR ( Amer) (> 60) Est GFR (Non-Af Amer) (> 60) BUN/Creatinine Ratio (6-26) Glucose (70-99) mg/dL Calculated Osmolality (280-300) Calcium (8.6-10.8) mg/dL Troponin I 0.00 (0-0.03) ng/mL 05/29/17 Range/Units 13:26 WBC (4.3-11.1) K/mcL RBC (4.19-5.50) M/mcL Hgb (12.9-16.9) g/dL Hct (37.5-50.1) % MCV (83.0-100.0) fL MCH (28.0-33.3) pg MCHC (31.6-35.5) g/dL RDW (11.5-14.5) % Plt Count (140-400) K/mcL MPV (9.4-12.4) fL Immature Gran % (0-4) % Seg Neutrophils % % Lymphocytes % % Monocytes % % Eosinophils % % Basophils % % Neutrophils # (1.6-8.9) K/mcL Lymphocytes # (0.6-4.6) K/mcL Monocytes # (0.0-1.3) K/mcL Eosinophils # (0.0-0.6) K/mcL Basophils # (0.0-0.2) K/mcL PT (9.4-12.1) Seconds INR APTT (26.0-36.0) Seconds Sodium 138 (136-145) mEq/L Potassium 3.9 (3.5-4.5) mEq/L Chloride 104 (98-109) mEq/L Carbon Dioxide 26 (19-29) mEq/L BUN 11 (8-26) mg/dL Creatinine 0.94 (0.72-1.25) mg/dL Est GFR ( Amer) > 60 (> 60) Est GFR (Non-Af Amer) > 60 (> 60) BUN/Creatinine Ratio 12 (6-26) Glucose 87 (70-99) mg/dL Calculated Osmolality 285 (280-300) Calcium 10.1 (8.6-10.8) mg/dL Troponin I (0-0.03) ng/mL Attestation Statement - Attestation Attestation: I examined this patient and my medical decision-making was reviewed with the ROLLER ENGRAVER/PA/Advanced Practice Nurse/Resident Physician. I agree with the documented findings, disposition and treatment plan as described except to the extent set forth below. Male patient with history of pericarditis. EKG does not have evidence of pericarditis at this time. Bedside ultrasound shows no evidence of pericardial effusion. Discussed case with on-call audiovisual aids technician who agrees the patient should be admitted for echocardiogram for further evaluation. Patient stable at time of admission. Cardiac biomarkers are checked and negative.
[2017-05-29] MEDS: Ibuprofen 400 MG TABLET PO PRN (19:58)
[2017-05-29] MEDS: Colchicine 0.6 MG TABLET PO PRN (19:58)
[2017-05-30] MEDS ORDERED: Albuterol 2.5 MG/3 ML NEBULIZER IH PRN (00:55)
[2017-05-30] MEDS ORDERED: Bismuth Subsalicylate 120 ML ORAL SUSPENSION PO PRN (00:55)
[2017-05-30 01:57] LABS: Basophils # 0.1 K/mcL (0.0-0.2); Eosinophils # 0.9 K/mcL (0.0-0.6); Eosinophils % 7.5 %; Hematocrit 43.5 % (37.5-50.1); Hemoglobin 14.9 g/dL (12.9-16.9); Immature Granulocytes % 0.2 % (0-4); Lymphocytes % 35.3 %; Mean Corpuscular HGB Conc 34.3 g/dL (31.6-35.5); Mean Corpuscular Hemoglobin 30.4 pg (28.0-33.3); Mean Corpuscular Volume 88.8 fL (83.0-100.0); Mean Platelet Volume 9.9 fL (9.4-12.4); Monocytes # 0.9 K/mcL (0.0-1.3); Monocytes % 7.5 %; Neutrophils # 5.6 K/mcL (1.6-8.9); Platelet Count 316 K/mcL (140-400); Red Cell Distribution Width 12.9 % (11.5-14.5); Segmented Neutrophils % 48.5 %
[2017-05-30 02:13] LABS: BUN/Creatinine Ratio 16 (6-26); Blood Urea Nitrogen 16 mg/dL (8-26); Calcium 9.6 mg/dL (8.6-10.8); Carbon Dioxide 22 mEq/L (19-29); Chloride 104 mEq/L (98-109); Glucose 132 mg/dL (70-99); Osmolality,Calculated 289 (280-300); Potassium 3.2 mEq/L (3.5-4.5); Sodium 138 mEq/L (136-145); eGFR For African Americans > 60 (> 60); eGFR For Non-African Americans > 60 (> 60)
[2017-05-30] MEDS ORDERED: Loratadine 10 MG TABLET PO SCH (09:00)
[2017-05-30] MEDS: Ibuprofen 400 MG TABLET PO PRN (09:34)
[2017-05-30] MEDS: Colchicine 0.6 MG TABLET PO PRN (09:34)
[2017-05-30 11:21] VITALS: BP 127/89
--- NOTE | 2017-05-30 11:30 | Electrocardiograph Report ---
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
--- NOTE | 2017-05-30 15:41 | Discharge Summary ---
Date of Encounter: 05/30/17 Time of Encounter: 14:30 - Discharge Diagnosis (1) Chest pain Priority: Primary Status: Resolved Comments: Patient denied chest pain or shortness of breath throughout this admission. Patient stating his symptoms resolved with colchicine and NSAIDs. Troponins negative 4. Elevated d-dimer however patient's d-dimer is also elevated in January and at that time CT was negative. Low clinical suspicion for PE. Echocardiogram unremarkable with ejection fraction of 55%. No signs of acute pericarditis. Follow-up outpatient. Qualifiers: Chest pain type: precordial pain Qualified Code(s): R07.2 - Precordial pain (2) DVT prophylaxis Priority: Primary Status: Acute Comments: Observation patient, up ad tavo. (3) Dyspnea Priority: Primary Status: Resolved Qualifiers: Dyspnea type: shortness of breath Qualified Code(s): R06.02 - Shortness of breath (4) History of pericarditis Priority: Primary Status: Ruled-out (5) Asthma Priority: Secondary Status: Chronic Comments: No acute exacerbation. Patient denied shortness of breath above his normal day of discharge. Qualifiers: Asthma severity: mild intermittent Asthma complication type: uncomplicated Qualified Code(s): J45.20 - Mild intermittent asthma, uncomplicated (6) Gout Priority: Secondary Status: Chronic Qualifiers: Gout site: unspecified site Gout etiology: unspecified cause Chronicity: chronic Presence of tophus: without tophus Qualified Code(s): M1A.9XX0 - Chronic gout, unspecified, without tophus (tophi) - Discharge Medications Home Medications: Cetirizine HCl [Zyrtec] 10 mg PO DAILY 11/08/16 [History] Colchicine [Colcrys] 0.6 mg PO BID #20 tablet 01/22/17 [Rx] Albuterol Sulfate [Albuterol Inhaler] 2 puff IH QID PRN 05/29/17 [History] Ibuprofen [Motrin] 400 mg PO Q6HR PRN 05/29/17 [History] Allergies/Adverse Reactions: Allergies No Known Allergies Allergy (Verified 05/29/17 11:59) Procedures/tests Complete & Pending: Procedures Performed prior 72 hours Category Date Time Status EV echocardiogram Routine Y 05/29/17 18:17 Completed Date of admission: 05/29/17 16:22 Primary care physician: Manjinder Lora DO Discharging clinician: Yuly Cohn Anticipated date of discharge: 05/30/17 - Patient Status Disposition: Home, Self-Care Condition: Good Functional capacity at discharge: independent ambulation Overall status at discharge: patient is back to baseline - Discharge Instructions Follow Up With: Manjinder Lora DO [Primary Care Provider] - 06/06/17 9:00 am (This appointment will with Luis Vora CNP.) - Diet and Activity Activity: increase activity as tolerated Diet: regular diet Hospital course: Mr. Mcallister is a 36 year old male with past medical history of asthma, gout, and recent pericarditis in February 2017. Patient presented to the emergency department chief complaint of dyspnea and chest discomfort 1 week. Patient reporting history of upper respiratory tract infection prior to these complaints that has since resolved. Patient stating he started feeling short of breath with intermittent chest discomfort and tightness that was aggravated with exertion. He states that the episodes had been worsening for the 1-2 days prior to presentation and were associated with a nonproductive cough. Patient stating his chest discomfort was relieved with colchicine and NSAIDs which he took at home assuming that this was another episode of pericarditis. Workup in the emergency department unremarkable. Chest x-ray negative. A bedside echocardiogram was thought to be abnormal in the emergency Department so the patient was admitted to the hospitalist service for further evaluation and management. Femoral echocardiogram negative for signs of pericarditis or acute processes. Ejection fraction 55%. Patient denied shortness of breath or chest pain throughout this admission. Troponins were negative 4. He did have a mildly elevated d-dimer however his d-dimer was elevated in January and a CTA at that time was negative. He was discharged home in stable condition with close outpatient follow-up recommended. ITS Impressions Chest X-Ray 05/29/17 13:17 IMPRESSION: No significant findings in the chest. D/ / Wang Carpio MD / Wang Carpio MD Interpreting Provider: Wang Carpio MD Echocardiogram impressions: LVEF 55%. Normal LV chamber size, wall thickness and function. Mild left ventricular diastolic dysfunction. Normal right ventricular structure and function. Unable to estimate RVSP due to lack of TR jet. The pericardium appears normal. No effusion. No significant valvular dysfunction. - Time Spent with Patient Total time spent providing and/or coordinating discharge services: - Constitutional Vitals: Temp Pulse Resp BP Pulse Ox 98.2 F 84 16 127/89 95 05/30/17 11:19 05/30/17 11:19 05/30/17 11:19 05/30/17 11:19 05/30/17 11:19 General appearance: Present: A&O X 3, pleasant, no acute distress, answers questions appropriately - Head Head exam: Present: atraumatic, normocephalic - Eye Eye exam: Present: PERRL, conjuntiva pink, sclera anicteric Pupils: Present: PERRL - Neck Neck exam general surgery: Present: supple, trachea midline. Absent: lymphadenopathy - Respiratory Respiratory exam: Present: CTAB. Absent: accessory muscle use, rales, respiratory distress, rhonchi, wheezes - Cardiovascular Cardiovascular exam: Present: RRR, +S1, +S2. Absent: diastolic murmur, gallop, rubs, systolic murmur - GI/Abdominal GI/Abdominal exam: Present: normal bowel sounds, soft, no peritoneal signs. Absent: distended, tenderness - Extremities Exam Extremities exam: Present: warm, radial pulses palpable and symetrical. Absent : calf tenderness, cyanotic, pedal edema - Neurological Exam Neurological exam: Present: alert, CN II-XII intact, normal gait, oriented X3, no focal deficits, strengths equal and symetr throughout. Absent: pronater drift, facial droop, speech deficit - Skin Skin exam: Present: dry, intact, normal color, warm
== END 2017-05-30 16:32 | disposition home or self-care (01) ==
LOC: EMEROO 13:08 → 3BNU 13:08 → SUATTDRO 16:22 → 3BNU 17:54
PROVIDERS: ADMIT Internal Medicine; ATTEND Nurse Practitioner Family